=== PATIENT | male | born 1955 | race Two or more races ===

== ENCOUNTER → 2017-04-29 | Outpatient (CLI) | payer OTHER | END | disposition home or self-care (01) | LOC: Rad HDHVI 14:22 | PROVIDERS: ATTEND Internal Medicine Cardiovascular Disease | DX: I20.0 Unstable angina (principal); R06.02 Shortness of breath | CPT/HCPCS: 93306 ==

== ENCOUNTER → 2018-10-23 | Outpatient (CLI) | payer OTHER ==
[~2018-10-23] VITALS: Ht 170.2 cm; Wt 115.7 kg
[~2018-10-23] MED LIST: ADENOSINE 90 MG/30 ML INJ IV ONE; ADENOSINE 97 MG in GIVE UN-DILUTED 0 ML IV ONE; ASPI-231 PO; ATOR20TA50 PO; CLOP75TA28 PO; DOCU-94 PO; METO25TA5 PO; NITR0.4S29 SL
== END | disposition home or self-care (01) ==
LOC: Rad HDHVI 09:38
PROVIDERS: ATTEND Internal Medicine Cardiovascular Disease
DX: E11.21 Type 2 diabetes mellitus with diabetic nephropathy (principal); E11.65 Type 2 diabetes mellitus with hyperglycemia; I20.0 Unstable angina; E78.00 Pure hypercholesterolemia, unspecified; E66.9 Obesity, unspecified
CPT/HCPCS: 78452; 93005; 96374; 96375; A9500; J0153

== ENCOUNTER 2020-03-05 22:04 | Inpatient (IN) | payer OTHER ==
[~2020-03-05] VITALS: Ht 170.2 cm; Wt 114.4 kg
[~2020-03-05 22:04] MED LIST changes: -ADENOSINE 90 MG/30 ML INJ IV ONE; -ADENOSINE 97 MG in GIVE UN-DILUTED 0 ML IV ONE
[2020-03-05 23:16] LABS: Basophils # (auto) 0 10 ^3/uL (0-0.2); Basophils % (auto) 0.5 % (0.0-2.0); Eosinophils # (auto) 0.3 10 ^3/uL (0-0.8); Hematocrit 38.7 % (41.0-53.0); Hemoglobin 12.9 g/dL (13.5-17.5); Lymphocytes # (auto) 0.9 10 ^3/uL (0.4-5.4); Lymphocytes % (auto) 9.9 % (10.0-50.0); Mean Corpuscular Hemoglobin 27.3 pg (28.0-32.0); Mean Corpuscular Hgb Conc. 33.5 g/dL (32.0-36.0); Mean Corpuscular Volume 81.7 fL (80.0-100.0); Monocytes # (auto) 0.6 10 ^3/uL (0-1.3); Monocytes % (auto) 6.4 % (0.0-12.0); Neutrophils % (auto) 80.2 % (37.0-80.0); Platelet Count (auto) 135 10^3/uL (140-450); Red Blood Cells 4.74 10^6/uL (4.5-5.90); Red Cell Distribution Width 15.4 % (11.8-14.3); White Blood Cell 8.8 10^3/uL (4.4-10.8)
[2020-03-05 23:44] LABS: BUN/Creatinine Ratio 24.1; Calcium 9.1 mg/dL (8.5-10.1); Potassium 4.4 mmol/L (3.5-5.1)
[2020-03-05 23:48] LABS: INR 1.01 (0.9-1.15); Partial Thromboplastin Time 28.7 sec (23.0-31.2)
[2020-03-05 23:49] LABS: Bilirubin, Total 0.9 mg/dL (0.2-1.0); Total Protein 7.8 g/dL (6.4-8.2)
[2020-03-06] VITALS (7 sets, daily range): BP systolic 108–156; BP diastolic 55–74
[2020-03-06] MEDS ORDERED: ENOXAPARIN SOD 100 MG/1 ML SYRINGE SC ONE (00:15)
[2020-03-06] MEDS ORDERED: FUROSEMIDE 20 MG/2 ML VIAL IV ONE (00:15)
[2020-03-06] MEDS ORDERED: IOHEXOL 350 MG/ML 100ML IJ ONE ×4 (00:18→12:29)
[2020-03-06] MEDS ORDERED: HYDROcodone-ACET 10/325MG TAB PO PRN (00:45)
[2020-03-06] MEDS ORDERED: DEXTROSE (50%) 50ML SYRG IV PRN (00:45)
[2020-03-06] MEDS ORDERED: MORPHINE SULF INJ 2 MG/ML SYRINGE 1ML IV PRN (00:45)
[2020-03-06] MEDS ORDERED: NITROGLYCERIN 0.4 MG SL TAB SL PRN (00:45)
[2020-03-06] MEDS ORDERED: NITROGLYCERIN 0.4 MG SL TAB SL SCH (01:00)
--- NOTE | 2020-03-06 03:53 | NUR ---
Telemetry admit from ER JAGRUTI SORIA admitted to Telemetry unit after SBAR received. Patient oriented to Kalpana Nava, primary RN, unit, room, bed, and unit policies regarding patient care and visiting hours. Patient now on continuous telemetry monitoring, tele box #73 and telemetry reading on arrival to unit is SR. Patient placed on bedside oxygen, weighed by bedscale and encouraged to call if they need something. All questions and concerns addressed, patient verbalized understanding.
[2020-03-06] MEDS ORDERED: PNEUMOCOCCAL VACC POLYS 25 MCG/0.5 ML VIAL IM ONE (05:45)
--- NOTE | 2020-03-06 06:32 | NUR ---
COVID and MRSA swabs collected and walked down to lab per MD order.
[2020-03-06] MEDS: InsuLIN REG 1unit/0.01ml Soln (100units/ml) SC SCH ×4 (06:35→22:14)
[2020-03-06] MEDS: ACCU-CHEK COMFORT CURVE STRIP VI SCH ×4 (06:35→22:13)
--- NOTE | 2020-03-06 07:29 | NUR ---
Critical Lab Value Trop of 4.05 reported by lab. Paged Dr Bruno, left message with answering messaging service. Will continue to monitor. Addendum: 03/06/20 at 0834 by ZOFIA SETH RN RN Dr Ohara paged back. New orders given. Requested that I notify Dr Alida Jorge. Left message with Dr Jorge. Will implement orders and continue to monitor.
--- NOTE | 2020-03-06 07:50 | NUR ---
Opening Note Assumed pt care from NOC RN. Pt is a/ox4 with no s/s of distress or SOB. Pt is currently sitting upright in bed with no complaints att his time, currently on 5 L via NC, titrated pt down to 3L, will continue to monitor O2 needs. Discussed POC with pt and pending cardiology consult, pt verbalized understanding. Safety measures maintained with call light within reach, be din lowest position and side rails up. Will continue to monitor for changes.
--- NOTE | 2020-03-06 09:00 | NUR ---
EKG Done and Placed in Chart SR shown. Will present to MD upon rounding.
--- NOTE | 2020-03-06 09:35 | NUR ---
Dr Alida Jorge paged back. Requested pt be taken to lab nurse once lab nurse team is called in for C. Notified lead housekeeper, Mecca. She stated she would let me know of time. HS informed of pt eating breakfast. Informed pt and requested that he would be NPO from here on out. Will continue to monitor.
[2020-03-06] MEDS: ASPirin-EC 81 mg tab PO SCH (09:44)
[2020-03-06] MEDS: DOCUSATE SOD 100 MG CAP PO SCH ×2 (09:44→22:12)
[2020-03-06] MEDS: LISINOPRIL 5 MG TAB PO SCH (09:45)
[2020-03-06] MEDS: METOPROLOL TARTRATE 25 MG TAB PO SCH ×2 (09:45→22:13)
[2020-03-06] MEDS ORDERED: CLOPIDOGREL BISULFATE 75 MG TAB PO SCH (10:00)
[2020-03-06] MEDS ORDERED: LIDOCAINE 2%HCL (LOCAL ANESTH.) INJ 20ML MDV ONE (10:44)
[2020-03-06] MEDS ORDERED: VERAPAMIL 2.5MG/ML INJ 2ML VIAL IV ONE (11:06)
[2020-03-06] MEDS ORDERED: HEPARIN SODIUM (PORCINE) 5000 UNITS/ML 1ML VIAL ONE (11:06)
[2020-03-06] MEDS ORDERED: ANGIOMAX 250 MG VIAL IV ONE ×2 (11:06→12:05)
[2020-03-06] MEDS ORDERED: fentaNYL CITRATE 100 MCG/2 ML VL ONE (11:06)
[2020-03-06] MEDS ORDERED: NITROGLYCERIN 50MG/250ML 250 ML IV ONE (11:07)
--- NOTE | 2020-03-06 11:14 | NUR ---
Pt off Unit to Sew On Operator Pt is a/ox4 with no s/s of distress.
[2020-03-06] MEDS ORDERED: diphenhdrAMINE HCL 50 MG/1 ML VL ONE (11:30)
[2020-03-06] MEDS ORDERED: SODIUM CHL 0.9% 50 ML ONE ×2 (11:33→12:05)
[2020-03-06] MEDS ORDERED: ENOXAPARIN SOD 120 MG/0.8 ML SYRINGE SC SCH (12:00)
[2020-03-06] MEDS ORDERED: FUROSEMIDE 20 MG/2 ML VIAL ONE ×2 (12:07→12:33)
[2020-03-06] MEDS ORDERED: CLOPIDOGREL 300 MG TAB ONE (12:30)
--- NOTE | 2020-03-06 12:57 | NUR ---
Pt Back on Unit Pt back on unit from brine room laborer. Pt is a/ox4 with no s/s of distress or SOB. Vasc band present to R wrist. Will start removing air at 1310. Pt placed on 3L via NC. Slightly hypertensive at 157/73 Hr 73, the reassessed at 156/74 with HR of 68. Will reassess pt and continue to monitor. Addendum: 03/06/20 at 1350 by ZOFIA SETH RN RN Vasc band removed completely. Site is asymptomatic. Band-aid applied to site. Will continue to monitor.
--- NOTE | 2020-03-06 15:53 | NUR ---
Pt Self Removed IV Pt self removed Iv to R hand. Catheter was removed fully intact. Site is asymptomatic. Dressing applied to site.
--- NOTE | 2020-03-06 19:00 | NUR ---
Opening Shift Note Assumed care of patient after receiving report from JUAN R Alcantar. Patient is awake and alert with no S/S of distress/SOB or pain. Call light within reach, HOB semi fowlers, bed in lowest, locked position x2 side rails. Instructed on POC and to call for assist PRN, will continue to monitor for changes Q1hr and PRN.
[2020-03-06] MEDS: ATORVASTATIN 20 MG TAB PO SCH (22:12)
--- NOTE | 2020-03-07 04:34 | NUR ---
Patient complains of pain in upper thigh/hip area. Patient describes pain as a cramping ache. Administered PRN NORCO for mild-moderate pain. Will reassess and continue to monitor.
[2020-03-07 05:00] VITALS: BP 116/65
[2020-03-07] MEDS: ACCU-CHEK COMFORT CURVE STRIP VI SCH ×4 (06:24→22:42)
[2020-03-07] MEDS: InsuLIN REG 1unit/0.01ml Soln (100units/ml) SC SCH ×4 (06:30→22:44)
--- NOTE | 2020-03-07 07:26 | NUR ---
Opening Note Assumed pt care from NOC RN. Pt is a/ox4 with no s/s of distress or SOB. Pt is currently siting upright in bed on 3L via NC, no complains of SOB. [facility] site is asymptomatic with band-aid. Discussed POC with pt, pt verbalized understanding. Safety measures maintained with call light within reach, bed in lowest position and side rails up. Will continue to monitor for changes.
[2020-03-07 08:00] VITALS: BP 106/62
[2020-03-07 08:04] LABS: Basophils # (auto) 0 10 ^3/uL (0-0.2); Basophils % (auto) 0.3 % (0.0-2.0); Eosinophils # (auto) 0.2 10 ^3/uL (0-0.8); Eosinophils % (auto) 2.4 % (0.0-7.0); Hematocrit 35.5 % (41.0-53.0); Lymphocytes # (auto) 0.6 10 ^3/uL (0.4-5.4); Lymphocytes % (auto) 7.9 % (10.0-50.0); Mean Corpuscular Hemoglobin 27.8 pg (28.0-32.0); Mean Corpuscular Hgb Conc. 33.9 g/dL (32.0-36.0); Mean Corpuscular Volume 81.9 fL (80.0-100.0); Monocytes # (auto) 0.7 10 ^3/uL (0-1.3); Monocytes % (auto) 8.4 % (0.0-12.0); Neutrophils # (auto) 6.4 10 ^3/uL (1.6-8.6); Nucleated Red Blood Cells % 0.1 %; Platelet Count (auto) 117 10^3/uL (140-450); Red Blood Cells 4.33 10^6/uL (4.5-5.90); Red Cell Distribution Width 15.9 % (11.8-14.3); White Blood Cell 7.9 10^3/uL (4.4-10.8)
[2020-03-07 08:18] LABS: Potassium 4.1 mmol/L (3.5-5.1)
[2020-03-07 08:29] LABS: BUN/Creatinine Ratio 27.4; Calcium 9.3 mg/dL (8.5-10.1)
--- NOTE | 2020-03-07 08:39 | NUR ---
Troponin Lab reported Trop at 1.36. Significant decrease from previous trop at 4.05. Will continue to monitor. Addendum: 03/07/20 at 1449 by ZOFIA SETH RN RN Elevated troponin of 0.882 reported. Continued to trend down from previous lab draws, will continue to monitor.
[2020-03-07] MEDS: CLOPIDOGREL BISULFATE 75 MG TAB PO SCH (08:50)
[2020-03-07] MEDS: DOCUSATE SOD 100 MG CAP PO SCH ×2 (08:50→22:42)
[2020-03-07] MEDS: ASPirin-EC 81 mg tab PO SCH (08:50)
[2020-03-07] MEDS: METOPROLOL TARTRATE 25 MG TAB PO SCH ×2 (08:50→22:00)
[2020-03-07] MEDS: LISINOPRIL 5 MG TAB PO SCH (08:50)
[2020-03-07] MEDS ORDERED: OPTISON 3ml Vial for INJ IV ONE (11:10)
[2020-03-07 16:59] VITALS: BP 118/54
--- NOTE | 2020-03-07 19:00 | NUR ---
Opening Shift Note Assumed care of patient after receiving report from day RN. Patient is awake and alert with no S/S of distress/SOB or pain. Call light within reach, bed in lowest, locked position x2 side rails. Instructed on POC and to call for assist PRN, will continue to monitor for changes Q1hr and PRN.
[2020-03-07 22:00] VITALS: BP 96/46
[2020-03-07] MEDS: ATORVASTATIN 20 MG TAB PO SCH (22:42)
--- NOTE | 2020-03-07 23:34 | NUR ---
Troponin, critical lab value received of 0.667. Trending down, MD aware of critical trop downward trend. Will continue to monitor.
[2020-03-08 05:00] VITALS: BP 95/53
[2020-03-08] MEDS: ACCU-CHEK COMFORT CURVE STRIP VI SCH ×4 (06:26→22:06)
[2020-03-08] MEDS: InsuLIN REG 1unit/0.01ml Soln (100units/ml) SC SCH ×4 (06:33→22:07)
[2020-03-08 08:00] VITALS: BP 99/51
[2020-03-08] MEDS: DOCUSATE SOD 100 MG CAP PO SCH ×2 (09:50→22:06)
[2020-03-08] MEDS: CLOPIDOGREL BISULFATE 75 MG TAB PO SCH (09:51)
[2020-03-08] MEDS: ASPirin-EC 81 mg tab PO SCH (09:51)
[2020-03-08] MEDS: METOPROLOL TARTRATE 25 MG TAB PO SCH ×2 (10:00→22:00)
[2020-03-08] MEDS: LISINOPRIL 5 MG TAB PO SCH (10:00)
--- NOTE | 2020-03-08 11:50 | NUR ---
IV insertion IV access obtained, via clean sterile technique by inserting 20 gauge catheter at right forearm after 1 attempt(s). IV secured properly. No trauma to site. Patient tolerated well. IV removal IV to left AC removed with clean sterile technique, catheter fully intact. Pressure dressing applied to site. Patient tolerated well.
[2020-03-08 12:00] VITALS: BP 109/57
[2020-03-08 17:00] VITALS: BP 109/58
--- NOTE | 2020-03-08 19:10 | NUR ---
Opening Shift Note Assumed care of patient, awake and alert x4. No S/S of distress/SOB or pain. Bed in low locked position, call light within reach. Instructed on POC and to call for assist PRN, will continue to monitor for changes Q1hr and PRN.
[2020-03-08 21:30] VITALS: BP 107/62
[2020-03-08] MEDS: ATORVASTATIN 20 MG TAB PO SCH (22:06)
[2020-03-09] VITALS (7 sets, daily range): BP systolic 13–113; BP diastolic 49–71
--- NOTE | 2020-03-09 01:52 | NUR ---
[facility] CALLED MARGE FROM [facility] CALLED ASKING FOR FACESHEET RECORD OF THE PATIENT TO FAX IT TO THEM, RELAYING THAT DR. THOMPSON SENT A MESSAGE YESTERDAY THAT PATIENT NEEDS TRANSAORTIC VALVE REPLACEMENT TO [facility], BUT MARGE DOESN'T KNOW THE PASSWORD.. THEN SHE SAID THAT THERE IS NO AVAILABLE ROOM. AND REQUESTED TO INFORM THE RETAIL GIFT CARD MERCHANDISING TO REACH OUT TO THEIR TRANSFER CENTER. WILL ENDORSE TO AM NURSE.
--- NOTE | 2020-03-09 02:21 | NUR ---
PATIENT COMPLAINED OF ITCHING AND REDNESS ON HIS BACK. PLACED A LOTION FOR NOW AND WILL KEEP ON MONITORING THE PATIENT.
--- NOTE | 2020-03-09 04:35 | NUR ---
Patient asleep now. No complains.
[2020-03-09 06:16] LABS: Basophils # (auto) 0 10 ^3/uL (0-0.2); Basophils % (auto) 0.6 % (0.0-2.0); Eosinophils # (auto) 0.3 10 ^3/uL (0-0.8); Eosinophils % (auto) 5.3 % (0.0-7.0); Hematocrit 34.2 % (41.0-53.0); Hemoglobin 11.3 g/dL (13.5-17.5); Lymphocytes # (auto) 0.6 10 ^3/uL (0.4-5.4); Lymphocytes % (auto) 12.3 % (10.0-50.0); Mean Corpuscular Hgb Conc. 33.2 g/dL (32.0-36.0); Mean Corpuscular Volume 81.5 fL (80.0-100.0); Monocytes # (auto) 0.4 10 ^3/uL (0-1.3); Monocytes % (auto) 7.3 % (0.0-12.0); Neutrophils # (auto) 3.8 10 ^3/uL (1.6-8.6); Neutrophils % (auto) 74.5 % (37.0-80.0); Platelet Count (auto) 108 10^3/uL (140-450); Red Blood Cells 4.19 10^6/uL (4.5-5.90); Red Cell Distribution Width 15.7 % (11.8-14.3); White Blood Cell 5.1 10^3/uL (4.4-10.8)
[2020-03-09] MEDS: ACCU-CHEK COMFORT CURVE STRIP VI SCH ×4 (06:34→21:04)
[2020-03-09] MEDS: InsuLIN REG 1unit/0.01ml Soln (100units/ml) SC SCH ×4 (06:36→21:04)
--- NOTE | 2020-03-09 07:04 | NUR ---
Closing shift event Patient resting in bed. No sob, no chest pain, no acute distress seen. Bed in low locked position, call light within reach. bed alarm on.
--- NOTE | 2020-03-09 09:18 | NUR ---
INFORMED MD PATIENT WAS C/O ITCHING AND A RASH ON HIS BACK SIDE. NEW ORDERS RECEIVED SEE EMR FOR ORDERS.
[2020-03-09] MEDS ORDERED: diphenhdrAMINE HCL 50 MG/1 ML VL IV ONE (09:30)
[2020-03-09] MEDS ORDERED: methylPREDNISolone SOD SUCC 125 MG/2 ML VL IV ONE (09:30)
[2020-03-09] MEDS: METOPROLOL TARTRATE 25 MG TAB PO SCH ×2 (10:00→21:05)
--- NOTE | 2020-03-09 10:15 | NUR ---
I called [facility] Bull Ladle Tender Sophie [phone] and left message regarding patient needing to be transferred to higher level of care for [facility] willing to accept pending authorization.
[2020-03-09] MEDS: DOCUSATE SOD 100 MG CAP PO SCH ×2 (10:39→21:05)
[2020-03-09] MEDS: CLOPIDOGREL BISULFATE 75 MG TAB PO SCH (10:44)
[2020-03-09] MEDS: LORATADINE 10 MG TAB PO SCH (10:44)
[2020-03-09] MEDS: ASPirin-EC 81 mg tab PO SCH (10:44)
[2020-03-09] MEDS: LISINOPRIL 5 MG TAB PO SCH (10:47)
--- NOTE | 2020-03-09 10:49 | NUR ---
I spoke with [facility] Optics Engineer Sophie regarding request to transfer to [facility]. Per Sophie, we need to reach out to closer facility such as [facility] before they will authorized patient to go all the way to [facility]. I called [facility] Transfer Center and spoke with Sophie, she said they do accept [facility] patients but their della department would have to do an CAR[place]INA. Sophie was unable to tell me whether or not they have beds available. I faxed clinical packet to [facility]. I called Dr. Quarles and left message regarding [facility] wanting us to reach out to [facility] first. I also spoke with nurse Rosa and made her aware.
--- NOTE | 2020-03-09 11:31 | NUR ---
I spoke with Sophie at [facility] Transfer Center, she said their computer systems are down and they can not finish processing this request until their systems are back up. I called [facility] Greaser Operator Sophie-left message asking if they will now authorize patient to be transferred to [facility]. I received a call from accepting at [facility]-he was asking what the hold up was. I let him know that [facility] is requesting that we reach out to a closer facility first. I also called the [facility] Transfer Center and left message regarding the same.
--- NOTE | 2020-03-09 12:09 | NUR ---
1200 03/09/20 - Faxed to [facility] at [phone] face sheet, H/P, labs, meds, consults, op report. Pending review, completion of transfer back agreement and bed availability.
--- NOTE | 2020-03-09 12:37 | NUR ---
I called [facility] Yard Hostler Sophie and left second message asking if they will work on authorization for [facility] as [facility] can not work on transfer request due to their systems being down.
--- NOTE | 2020-03-09 12:41 | NUR ---
Nutrition Assessment Notes Please refer to link for full assessment notes. Est Energy needs: 1154-6508 kcals (12-15 kcal/kgBW) Est Protein needs: 93-116 gms/day (0.8-1.0 gm/kgBW) Will continue to monitor and reassess prn. Addendum: 03/09/20 at [address] Amended: Links added.
--- NOTE | 2020-03-09 13:43 | NUR ---
I received a call from [facility] Bathhouse Attendant Sophie letting me know that they are not authorizing [facility] yet until [facility] tells us they are unable to accept patient. I let Sophie know that per [facility] their systems are down and they can not process the transfer until their systems come back up. Per Sophie even if they were to authorize [facility] it is a process because [place]-the authorization would not be able to be completed today. Per Sophie we will re-connect in the morning regarding [facility] and [facility] and authorization.
--- NOTE | 2020-03-09 15:39 | NUR ---
I spoke with Dr. Alida Jorge regarding the transfer to higher level of care and that the accepting facility has to be authorized by [facility]. Per Dr. Jorge he has already spoken with Dr. Quarles regarding this. I let Dr. Jorge know that the transfer would not happen today.
--- NOTE | 2020-03-09 19:30 | NUR ---
Opening Shift Note Assumed care of patient, awake and alert. No S/S of distress/SOB or pain. Instructed on POC and to call for assist PRN, will continue to monitor for changes Q1hr and PRN.
--- NOTE | 2020-03-09 20:44 | NUR ---
paged Dr. Quarles regarding pt's breathing txt. awaiting for call back
[2020-03-09] MEDS: ATORVASTATIN 20 MG TAB PO SCH (21:05)
--- NOTE | 2020-03-09 22:14 | NUR ---
paged Dr. Quarles regarding breathing txt. awaiting for callback
--- NOTE | 2020-03-09 22:38 | NUR ---
spoke with Dr. Quarles regarding pt's breathing txt. new orders received
[2020-03-09] MEDS ORDERED: ALBUTEROL SULF 2.5 MG/0.5ML(0.5%) NEB SOLN NEB PRN (22:45)
--- NOTE | 2020-03-09 22:48 | NUR ---
RT at bedside for breathing txt
[2020-03-10 05:01] VITALS: BP 95/61
[2020-03-10] MEDS: ACCU-CHEK COMFORT CURVE STRIP VI SCH ×4 (06:08→22:01)
[2020-03-10] MEDS: InsuLIN REG 1unit/0.01ml Soln (100units/ml) SC SCH ×4 (06:13→22:02)
--- NOTE | 2020-03-10 07:24 | NUR ---
closing note endorsed care to day RN, no sign of distress at this time
[2020-03-10 09:00] VITALS: BP 94/56
[2020-03-10] MEDS: DOCUSATE SOD 100 MG CAP PO SCH ×2 (09:10→22:00)
[2020-03-10] MEDS: ASPirin-EC 81 mg tab PO SCH (09:10)
[2020-03-10] MEDS: LORATADINE 10 MG TAB PO SCH (09:10)
[2020-03-10] MEDS: METOPROLOL TARTRATE 25 MG TAB PO SCH ×2 (09:11→22:00)
[2020-03-10] MEDS: CLOPIDOGREL BISULFATE 75 MG TAB PO SCH (09:11)
[2020-03-10] MEDS: LISINOPRIL 5 MG TAB PO SCH (09:11)
--- NOTE | 2020-03-10 09:21 | NUR ---
I re-faxed transfer order/clinical packet to [facility] per their request.
--- NOTE | 2020-03-10 10:53 | NUR ---
I called [facility] Transfer Center and spoke with Leny, she did receive the faxed clinical information and they are working on doing an MD to MD.
--- NOTE | 2020-03-10 11:23 | NUR ---
I called [facility] Ged Instructor Sophie and left message to give her on update on the status of the transfer-I also asked her to provide me with an after hours contact to begin the CAROLINA process-awaiting return call.
--- NOTE | 2020-03-10 12:17 | NUR ---
I called [facility] and spoke with Katelyn, she said they are going to call Dr. Alida Jorge again (they called him about an hour ago and he could not talk at the time)-she will give me a call back once the doctors talk to let me know about acceptance. I provided her with contact information for Sophie at [facility]. I also called [facility] and left another message for Sophie regarding the CAROLINA process.
--- NOTE | 2020-03-10 12:27 | NUR ---
I received a message from Katelyn at the [facility] letting me know that they tried to get a hold of Dr. Alida Jorge-no answer-they will try again in an hour.
[2020-03-10 12:41] VITALS: BP 95/50
--- NOTE | 2020-03-10 14:23 | NUR ---
ASSESSED PT FOR PRN MED NEB, PT ON 3L NC WITH SPO2 95%, HR 56, RR 16 WITH CLEAR BS NO INDICATION FOR PRN BREATHING TX AT THIS TIME. WILL CONTINUE TO MONITOR PT.
--- NOTE | 2020-03-10 14:55 | NUR ---
I called [facility] Transfer Center and spoke with Katelyn-she said they are still trying to get a hold of Dr. Alida Jorge for a doctor to doctor. I attempted to call Dr. Alida Jorge-no answer.
[2020-03-10 16:35] VITALS: BP 92/56
[2020-03-10 22:00] VITALS: BP 101/54
[2020-03-10] MEDS: ATORVASTATIN 20 MG TAB PO SCH (22:00)
[2020-03-11 05:00] VITALS: BP 102/53
[2020-03-11] MEDS: InsuLIN REG 1unit/0.01ml Soln (100units/ml) SC SCH ×4 (06:50→20:51)
[2020-03-11] MEDS: ACCU-CHEK COMFORT CURVE STRIP VI SCH ×4 (06:50→20:47)
--- NOTE | 2020-03-11 07:30 | NUR ---
closing notes endorsed care to day RN, no sign of distress at this time
--- NOTE | 2020-03-11 07:30 | NUR ---
Opening Shift Note Assumed patient care from NOC RN. Patient currently sitting up in bed for breakfast. No signs of distress at this time. Respirations even and unlabored. Will continue to monitor q1hr and PRN.
--- NOTE | 2020-03-11 08:05 | NUR ---
I received a message from [facility]-Gladis letting me know that they have been unsuccessful in getting a hold of Dr. Alida Jorge. I called [facility] Transfer Center and spoke with Gladis-provided her with contact information for Dr. Quarles.
[2020-03-11 08:36] VITALS: BP 115/50
--- NOTE | 2020-03-11 09:12 | NUR ---
Respiratory note: PT SEEN AND ASSESSED AT THIS TIME. HR 77, RR 18, SPO2 97% ON 3LPM NASAL CANNULA. BREATH SOUNDS CLEAR T/O. PT DENIES SOB. NO S/S OF DISTRESS. MEDNEB TX NOT INDICATED AT THIS TIME. PT AWARE TO CALL FOR RT IF NEEDED.
--- NOTE | 2020-03-11 09:37 | NUR ---
I called [facility] Transfer Center and spoke with Gladis-she said they are about to contact Dr. Quarles to speak with their MD-she will give me a call back. I called [facility] Players Club Representative Sophie and left her a message giving her an update on the status of the transfer.
[2020-03-11] MEDS: METOPROLOL TARTRATE 25 MG TAB PO SCH ×2 (10:00→20:36)
[2020-03-11] MEDS: LISINOPRIL 5 MG TAB PO SCH (10:00)
[2020-03-11] MEDS: LORATADINE 10 MG TAB PO SCH (10:11)
[2020-03-11] MEDS: DOCUSATE SOD 100 MG CAP PO SCH ×2 (10:11→20:47)
[2020-03-11] MEDS: CLOPIDOGREL BISULFATE 75 MG TAB PO SCH (10:12)
[2020-03-11] MEDS: ASPirin-EC 81 mg tab PO SCH (10:12)
--- NOTE | 2020-03-11 11:15 | NUR ---
I received a call from the [facility] Transfer Center-Gladis letting me know that they have accepted this patient under Dr. Sanchez-their della department is working on an CAR[place]INA with [facility]. I called [facility] Quality Assurance Monitor Final Sophie and left her a message letting her know that [facility] is accepting this patient, pending CAROLINA completion. I spoke with nurse Shantel and updated her on the status of the transfer, I let her know that [facility] is still waiting on final insurance authorization-and that a guard would have to go in the ambulance with the patient. I let her know that [facility] is requesting that a second COVID test be done (they want one done within 5 days-if patient is transferred today, the current COVID test is sufficient, but if it doesn't happen until tomorrow a new COVID test is required.
--- NOTE | 2020-03-11 12:21 | NUR ---
I called [facility] and spoke with Tigist-placed them on will-call pending transfer to [facility].
--- NOTE | 2020-03-11 12:22 | NUR ---
I received a call from [facility] Wood Finisher Sophie letting me know that the CAROLINA is complete with [facility]. I called [facility] Transfer Center and spoke with Gladis-she will confirm with her della department and give me a call back.
[2020-03-11 12:49] VITALS: BP 131/71
--- NOTE | 2020-03-11 13:03 | NUR ---
I spoke with Gladis at the [facility] Transfer Center, she confirmed with her della department that the CAROLINA is complete. Faxed her latest COVID result per her request. Per Gladis they are waiting for a bed to become available. She did say that her MD may not want patient transferred until Saturday-and that we need to re-do the COVID test just in case.
--- NOTE | 2020-03-11 15:09 | NUR ---
SS Called Spoke with Melody, health and social care teacher, per Melody, patient has been accepted to [facility] and is currently pending bed. RN to obtain new covid swab for patient's transfer. Guard's notified of possible transfer and [facility] on will call.
--- NOTE | 2020-03-11 15:14 | NUR ---
I spoke with nurse Funes and made her aware that transfer to [facility] may not happen until Saturday-requested that a repeat COVID test be done. I let her know that [facility] is on will call and that a guard is to accompany patient for transport.
[2020-03-11 17:07] VITALS: BP 101/60
--- NOTE | 2020-03-11 18:27 | NUR ---
COVID Obtained IN house Covid swab per protocol. Patient tolerated well, no signs of distress at this time. Specimen walked and signed in to lab.
--- NOTE | 2020-03-11 18:57 | NUR ---
Respiratory note: PT RECIEVED ON NC3L TITRATED TO 2LPM. PT AWAKE AND ALERT. NO RESP DISTRESS NOTED. SPO2 98%, HR 72, RR 18, BS CLEAR T/O. NO PRN TX INDICATED AT THIS TIME. PT AWARE TO CALL FOR PRN TX IF SOB/WHEEZING.
--- NOTE | 2020-03-11 19:05 | NUR ---
Opening Shift Note Assumed care of patient, awake and alert. No S/S of distress/SOB or pain. Bed locked in lowest position, side rails up x2, call light within reach. Guards at the bedside. Instructed on POC and to call for assist PRN, will continue to monitor for changes Q1hr and PRN.
--- NOTE | 2020-03-11 19:16 | NUR ---
Closing Shift Note Report given to NOC RNSam. Patient shows no signs of distress at this time. Respirations even and unlabored.
[2020-03-11] MEDS: ATORVASTATIN 20 MG TAB PO SCH (20:47)
[2020-03-11 22:00] VITALS: BP 100/59
--- NOTE | 2020-03-11 23:05 | NUR ---
MD THOMPSON AT THE BEDSIDE.
[2020-03-12 05:00] VITALS: BP 102/53
[2020-03-12] MEDS: InsuLIN REG 1unit/0.01ml Soln (100units/ml) SC SCH ×4 (06:16→22:38)
[2020-03-12] MEDS: ACCU-CHEK COMFORT CURVE STRIP VI SCH ×4 (06:16→22:38)
--- NOTE | 2020-03-12 07:25 | NUR ---
CARE ENDORSED TO HERO PETE, NO SIGNS OF SOB/ DISTRESS. BED LOCKED IN LOWEST POSITION, SIDE RAILS UP X2, CALL LIGHT WITHIN REACH.
[2020-03-12 09:00] VITALS: BP 104/66
[2020-03-12] MEDS: METOPROLOL TARTRATE 25 MG TAB PO SCH ×3 (10:00→23:24)
[2020-03-12] MEDS: LISINOPRIL 5 MG TAB PO SCH (10:00)
--- NOTE | 2020-03-12 10:15 | NUR ---
I faxed COVID test result (from 03/11/20) to [facility].
[2020-03-12] MEDS: DOCUSATE SOD 100 MG CAP PO SCH ×2 (10:54→22:37)
[2020-03-12] MEDS: LORATADINE 10 MG TAB PO SCH (10:54)
[2020-03-12] MEDS: CLOPIDOGREL BISULFATE 75 MG TAB PO SCH (10:55)
[2020-03-12] MEDS: ASPirin-EC 81 mg tab PO SCH (10:55)
--- NOTE | 2020-03-12 11:42 | NUR ---
Nutrition Followup Note Wt 115kg Pt was alert and oriented at time of rounds. Pt reports appetite is good and denies any GI issues. Pt with a good appetite aeb pt with 100% po intake of regular diet per RN note Est Energy needs: 7247-1026 kcals (12-15 kcal/kgBW) Est Protein needs: 93-116 gms/day (0.8-1.0 gm/kgBW) Will continue to monitor and reassess prn. Labs; GLUC 243H BM: pt with 5 BMs 03/12 per RN note Skin: BS 21 low risk, full details in career coach note PES: Altered nutrition related lab values r/t current/chronic medical condition aeb hyperglycemia, elev troponin Comments Will continue to monitor PO status, skin status, pertinent labs and weight trends. Will f/u in 3-5 days. 1) Continue to carefully monitor pt PO intake to meet at least 75% of meals 2) Continue current plan of care Expected Outcomes/Goals: Pt appetite to remain >75% PO intake Pt labs to improve
--- NOTE | 2020-03-12 12:51 | NUR ---
I called the [facility] Transfer [facility] [phone] and spoke with Sandra, they do not have an available bed yet for this patient-will call nurse's station when a bed becomes available. [facility] remains on will-call.
[2020-03-12 13:00] VITALS: BP 107/64
[2020-03-12 16:28] VITALS: BP 98/63
--- NOTE | 2020-03-12 17:14 | NUR ---
SPOKE TO RICARDO AT [facility] BED IS AVAILABLE UNIT [address] ROOM 7 BED 2 CALL REPORT TO [phone]. SPOKE TO GUARDS AT BEDSIDE THEY SAID THEY DON'T HAVE A TRANSPORT CAR UNIT TOMORROW. I INFORMED RICARDO THAT WE CAN ARRANGE [facility] MARKETING EFFECTIVENESS MANAGER HERE AT 8 A.M. TOMORROW. SHE SAID WILL HOLD THE BED FOR PATIENT. I WILL PAGE DR WATKINS FOR DISCHARGE ORDER.
--- NOTE | 2020-03-12 17:40 | NUR ---
SPOKE TO GALILEA AT [facility] MADE ARRAGEMENTS FOR PICK AT 8 A.M. TOMORROW MORNING.
--- NOTE | 2020-03-12 19:35 | NUR ---
Opening Shift Note Assumed care of patient, awake and alert. No S/S of distress/SOB or pain. Safety measures in place, bed in lowest locked position, bed rails raised x2, call light within reach, guards at the bedside. Pt receiving 2L O2 via nasal cannula, saturating at 97%. All needs addressed at this time. Instructed on POC and to call for assist PRN, will continue to monitor for changes Q1hr and PRN.
--- NOTE | 2020-03-12 22:14 | NUR ---
Dr. Quarles paged regarding low BP 110/61 HR 73. Requesting orders regarding administration of scheduled BP med. Awaiting call back.
[2020-03-12 22:17] VITALS: BP 110/61
[2020-03-12] MEDS: ATORVASTATIN 20 MG TAB PO SCH (22:37)
--- NOTE | 2020-03-12 22:52 | NUR ---
Spoke with Dr. Quarles regarding BP medication. Per MD, give the scheduled medication. Will carry out.
[2020-03-12 23:04] VITALS: BP 110/61
--- NOTE | 2020-03-13 04:25 | NUR ---
Received call from [facility]. Bed assignment information provided again, [address], rm 7, bed 2. Phone number for report received as [phone] ext [phone]. ETA call back number .
[2020-03-13 05:17] VITALS: BP 107/64
[2020-03-13] MEDS: ACCU-CHEK COMFORT CURVE STRIP VI SCH (06:19)
[2020-03-13] MEDS: InsuLIN REG 1unit/0.01ml Soln (100units/ml) SC SCH (06:20)
--- NOTE | 2020-03-13 07:13 | NUR ---
CALLED REPORT TO ALFREDO Marina AT [facility]. ALL QUESTIONS AND CONCERNS ADDRESSED.
--- NOTE | 2020-03-13 07:50 | NUR ---
REPORT GIVEN TO [facility] STAFF AT PATIENTS BEDSIDE. NO SIGNS OF DISTRESS.
[2020-03-13 08:09] VITALS: BP 117/52
== END 2020-03-13 08:11 | disposition short-term general hospital (02) | DRG 248 ==
LOC: EDBD 22:04 → ER 22:09 → EEVIPCON 22:09 → TELE 22:10 → TELE-WESTW 03-06 04:31
PROVIDERS: ADMIT Internal Medicine; ATTEND Internal Medicine
PROC: 02703DZ Dilation of Coronary Artery, One Artery with Intraluminal Device, Percutaneous Approach (ICD-10-PCS; principal; 2020-03-06)
PROC: B2111ZZ Fluoroscopy of Multiple Coronary Arteries using Low Osmolar Contrast (ICD-10-PCS; 2020-03-06)
PROC: 4A023N7 Measurement of Cardiac Sampling and Pressure, Left Heart, Percutaneous Approach (ICD-10-PCS; 2020-03-06)
PROC: B2101ZZ Fluoroscopy of Single Coronary Artery using Low Osmolar Contrast (ICD-10-PCS; 2020-03-06)
DX: I21.4 Non-ST elevation (NSTEMI) myocardial infarction (principal); I50.43 Acute on chronic combined systolic (congestive) and diastolic (congestive) heart failure; E11.9 Type 2 diabetes mellitus without complications; E78.5 Hyperlipidemia, unspecified; I35.0 Nonrheumatic aortic (valve) stenosis; E66.01 Morbid (severe) obesity due to excess calories; E78.00 Pure hypercholesterolemia, unspecified; I11.0 Hypertensive heart disease with heart failure; I25.10 Atherosclerotic heart disease of native coronary artery without angina pectoris; Z20.828 Contact with and (suspected) exposure to other viral communicable diseases; Z68.39 Body mass index [BMI] 39.0-39.9, adult; Z79.4 Long term (current) use of insulin; Z83.3 Family history of diabetes mellitus; I25.2 Old myocardial infarction; Z93.3 Colostomy status; Z95.5 Presence of coronary angioplasty implant and graft; Z79.899 Other long term (current) drug therapy; Z79.82 Long term (current) use of aspirin; Z79.891 Long term (current) use of opiate analgesic; Z82.61 Family history of arthritis; Z82.49 Family history of ischemic heart disease and other diseases of the circulatory system
CPT/HCPCS: 36415; 71045; 71275; 80048; 80053; 82962; 83735; 83880; 84443; 84484; 85025; 85379; 85610; 85730; 86850; 86900; 86901; 87081; 93005; 93306; 94640; 99152; 99153; 99291; C1874; G0378; J1815; Q9956

== ENCOUNTER 2020-03-18 23:00 | Inpatient (IN) | payer OTHER ==
[~2020-03-18] VITALS: Ht 170.2 cm; Wt 111.0 kg
[2020-03-18 23:15] VITALS: BP 104/48
[2020-03-19] VITALS (7 sets, daily range): BP systolic 102–130; BP diastolic 44–63
[2020-03-19] MEDS ORDERED: NITROGLYCERIN 0.4 MG SL TAB SL PRN (00:15)
[2020-03-19] MEDS ORDERED: DEXTROSE (50%) 50ML SYRG IV PRN (00:15)
[2020-03-19] MEDS ORDERED: HYDROcodone-ACET 10/325MG TAB PO PRN (00:15)
[2020-03-19] MEDS ORDERED: BENA10TA9 PO (00:34)
[2020-03-19] MEDS ORDERED: INSU100I43 SC (00:34)
[2020-03-19] MEDS ORDERED: INSLANTI SC (00:34)
[2020-03-19 05:30] LABS: Basophils # (auto) 0 10 ^3/uL (0-0.2); Basophils % (auto) 0.5 % (0.0-2.0); Eosinophils # (auto) 0.2 10 ^3/uL (0-0.8); Eosinophils % (auto) 3.4 % (0.0-7.0); Hematocrit 31.2 % (41.0-53.0); Hemoglobin 10.7 g/dL (13.5-17.5); Lymphocytes # (auto) 0.9 10 ^3/uL (0.4-5.4); Lymphocytes % (auto) 15.6 % (10.0-50.0); Mean Corpuscular Hemoglobin 27.8 pg (28.0-32.0); Mean Corpuscular Hgb Conc. 34.3 g/dL (32.0-36.0); Monocytes # (auto) 0.7 10 ^3/uL (0-1.3); Neutrophils # (auto) 4.1 10 ^3/uL (1.6-8.6); Neutrophils % (auto) 69.5 % (37.0-80.0); Nucleated Red Blood Cells % 0.1 %; Platelet Count (auto) 110 10^3/uL (140-450); Red Blood Cells 3.86 10^6/uL (4.5-5.90)
[2020-03-19 05:54] LABS: Potassium 4.1 mmol/L (3.5-5.1)
[2020-03-19 05:59] LABS: BUN/Creatinine Ratio 24.4; Calcium 8.4 mg/dL (8.5-10.1)
[2020-03-19] MEDS: ACCU-CHEK COMFORT CURVE STRIP VI SCH ×2 (06:29→18:27)
[2020-03-19] MEDS: InsuLIN REG 1unit/0.01ml Soln (100units/ml) SC SCH ×2 (06:30→18:28)
[2020-03-19] MEDS ORDERED: METOPROLOL TARTRATE 25 MG TAB PO SCH (10:00)
[2020-03-19] MEDS: BENAZEPRIL HCL 10 MG TAB PO SCH (10:00)
[2020-03-19] MEDS: ASPirin 81 mg TAB PO SCH (10:17)
[2020-03-19] MEDS: CLOPIDOGREL BISULFATE 75 MG TAB PO SCH (10:18)
[2020-03-19] MEDS: LORATADINE 10 MG TAB PO SCH (10:18)
[2020-03-19] MEDS: INSULIN LANTUS (GLARGINE) 1 /0.01ml (100units/ml) SC SCH (22:00)
[2020-03-19] MEDS: METOPROLOL TARTRATE 25 MG TAB PO SCH (22:28)
[2020-03-19] MEDS: ATORVASTATIN 20 MG TAB PO SCH (22:28)
[2020-03-20 05:00] VITALS: BP 122/54
[2020-03-20] MEDS: ACCU-CHEK COMFORT CURVE STRIP VI SCH ×2 (06:48→17:41)
[2020-03-20] MEDS: InsuLIN REG 1unit/0.01ml Soln (100units/ml) SC SCH ×2 (06:50→17:41)
[2020-03-20 08:50] VITALS: BP 118/61
[2020-03-20] MEDS: ASPirin 81 mg TAB PO SCH (10:14)
[2020-03-20] MEDS: CLOPIDOGREL BISULFATE 75 MG TAB PO SCH (10:14)
[2020-03-20] MEDS: LORATADINE 10 MG TAB PO SCH (10:14)
[2020-03-20] MEDS: BENAZEPRIL HCL 10 MG TAB PO SCH (10:15)
[2020-03-20] MEDS: METOPROLOL TARTRATE 25 MG TAB PO SCH ×2 (10:16→21:45)
[2020-03-20] MEDS: DOCUSATE SOD 100 MG CAP PO PRN (12:13)
[2020-03-20 13:00] VITALS: BP 121/73
[2020-03-20 17:00] VITALS: BP 113/57
[2020-03-20] MEDS: INSULIN LANTUS (GLARGINE) 1 /0.01ml (100units/ml) SC SCH (21:27)
[2020-03-20] MEDS: ATORVASTATIN 20 MG TAB PO SCH (21:45)
[2020-03-20 22:00] VITALS: BP 116/44
[2020-03-21 05:42] VITALS: BP 101/40
[2020-03-21] MEDS: ACCU-CHEK COMFORT CURVE STRIP VI SCH ×2 (06:34→17:48)
[2020-03-21] MEDS: InsuLIN REG 1unit/0.01ml Soln (100units/ml) SC SCH ×2 (06:56→17:49)
[2020-03-21 08:00] VITALS: BP 107/65
[2020-03-21 09:00] VITALS: BP 107/65
[2020-03-21] MEDS: ASPirin 81 mg TAB PO SCH (09:40)
[2020-03-21] MEDS: LORATADINE 10 MG TAB PO SCH (09:41)
[2020-03-21] MEDS: BENAZEPRIL HCL 10 MG TAB PO SCH (09:41)
[2020-03-21] MEDS: METOPROLOL TARTRATE 25 MG TAB PO SCH ×2 (09:41→22:00)
[2020-03-21] MEDS: DOCUSATE SOD 100 MG CAP PO PRN (09:42)
[2020-03-21] MEDS: CLOPIDOGREL BISULFATE 75 MG TAB PO SCH (09:42)
[2020-03-21 13:00] VITALS: BP 107/69
[2020-03-21 17:00] VITALS: BP 106/53
[2020-03-21] MEDS: INSULIN LANTUS (GLARGINE) 1 /0.01ml (100units/ml) SC SCH (21:45)
[2020-03-21] MEDS: ATORVASTATIN 20 MG TAB PO SCH (21:59)
[2020-03-21 22:00] VITALS: BP 122/65
[2020-03-22 05:00] VITALS: BP 134/70
[2020-03-22] MEDS: ACCU-CHEK COMFORT CURVE STRIP VI SCH ×2 (06:39→17:20)
[2020-03-22] MEDS: InsuLIN REG 1unit/0.01ml Soln (100units/ml) SC SCH ×2 (06:40→17:20)
[2020-03-22 09:00] VITALS: BP 114/54
[2020-03-22] MEDS: LORATADINE 10 MG TAB PO SCH (10:18)
[2020-03-22] MEDS: CLOPIDOGREL BISULFATE 75 MG TAB PO SCH (10:18)
[2020-03-22] MEDS: BENAZEPRIL HCL 10 MG TAB PO SCH (10:19)
[2020-03-22] MEDS: ASPirin 81 mg TAB PO SCH (10:19)
[2020-03-22] MEDS: METOPROLOL TARTRATE 25 MG TAB PO SCH (10:19)
[2020-03-22] MEDS ORDERED: CLOP75TA28 PO (12:05)
[2020-03-22] MEDS ORDERED: METO25TA5 PO (12:05)
[2020-03-22] MEDS ORDERED: INSLANTI SC (12:05)
[2020-03-22] MEDS ORDERED: INSU100I43 SC (12:05)
[2020-03-22] MEDS ORDERED: DOCU-94 PO (12:05)
[2020-03-22 13:00] VITALS: BP 103/59
[2020-03-22 16:12] VITALS: BP 103/59
[2020-03-22 17:00] VITALS: BP 119/55
== END 2020-03-22 17:30 | DRG 306 ==
LOC: TELE-CENTR 23:00
PROVIDERS: ADMIT Internal Medicine; ATTEND Internal Medicine
DX: I35.0 Nonrheumatic aortic (valve) stenosis (principal); I50.33 Acute on chronic diastolic (congestive) heart failure; I25.10 Atherosclerotic heart disease of native coronary artery without angina pectoris; E66.9 Obesity, unspecified; E11.9 Type 2 diabetes mellitus without complications; D64.9 Anemia, unspecified; I11.0 Hypertensive heart disease with heart failure; E78.00 Pure hypercholesterolemia, unspecified; E78.5 Hyperlipidemia, unspecified; I25.2 Old myocardial infarction; Z95.5 Presence of coronary angioplasty implant and graft; Z95.2 Presence of prosthetic heart valve; Z93.3 Colostomy status; Z83.3 Family history of diabetes mellitus; Z82.61 Family history of arthritis; Z82.49 Family history of ischemic heart disease and other diseases of the circulatory system; Z79.899 Other long term (current) drug therapy; Z68.38 Body mass index [BMI] 38.0-38.9, adult; Z79.4 Long term (current) use of insulin
CPT/HCPCS: 36415; 71045; 80048; 82962; 85025; 93005; 97163; G0378; J1815